=== PATIENT | female | born 1960 | race Caucasian/White ===

== ENCOUNTER 2023-09-02 05:31 | Day surgery (SDC) | payer BC ==
[2023-09-02] VITALS (19 sets, daily range): BP systolic 107–150; BP diastolic 68–89; PULSE 70–98; RESP 11–17; TEMP 97.4; O2SAT 96–100
[~2023-09-02] VITALS: Ht 167.6 cm; Wt 84.3 kg
[~2023-09-02 05:31] MED LIST: ALPR0.5T8 PO; INDOCYANINE GREEN 25 MG/10 ML VIAL IV ONE; NEBI5TAB10 PO; SEMA2PEN SQ; cefazolin 2gm/D5W 100mL 100 ML IV ONE; famotidine 20mg tablet PO ONE; ringers solution, lacted 1,000 ML IV SCH
[2023-09-02] MEDS ORDERED: LIDOcaine 1% 30ml preserv. free vial ONE ×2 (06:44→06:45)
[2023-09-02] MEDS ORDERED: BUPIVAcaine/PF 2.5mg/ml (0.25%) 10ml vial ONE ×2 (06:44→06:45)
--- NOTE | 2023-09-02 07:06 | NUR ---
LARRY LIRA HAS LOST APPROXIMATELY 7 POUNDS DUE TO NAUSEA FROM HER GALL BLADDER ISSUES Addendum: 09/02/23 at 0707 by Shannon Reis RN Amended: Links added.
[2023-09-02] MEDS ORDERED: fentaNYL/PF 50MCG/1 ML 2ML syringe ONE (07:20)
[2023-09-02] MEDS ORDERED: LIDOcaine 2% (20mg/ml) 5ml vial ONE (07:21)
[2023-09-02] MEDS ORDERED: rocuronium 10mg/ml inj IV ONE ×2 (07:21→09:06)
[2023-09-02] MEDS ORDERED: propofol inj 20 ML IV ONE (07:21)
[2023-09-02 07:29] LABS: ISTAT CREATININE 0.8 mg/dL (0.6-1.1); ISTAT HGB 13.3 g/dl (12.0-16.0); ISTAT IONIZED CALCIUM 1.2 mmol/L (1.03-1.32); ISTAT K 3.9 mmol/L (3.5-5.1); POC BUN/CREATININE RATIO 16.3 (6.6-38.0)
[2023-09-02] MEDS ORDERED: sevoflurane 250ml liquid IH ONE (07:32)
[2023-09-02] MEDS ORDERED: proCHLORperazine 10 MG/2 ml inj IV PRN (07:50)
[2023-09-02] MEDS ORDERED: morphine 2 MG/ML inj. syringe IV PRN (07:50)
[2023-09-02] MEDS ORDERED: meperidine/PF 25mg/ml syringe IV PRN ×3 (07:50)
[2023-09-02] MEDS ORDERED: morphine 4 MG/ML inj SYRINge IV PRN (07:50)
[2023-09-02] MEDS ORDERED: ringers solution, lacted 1,000 ML IV SCH (07:50)
[2023-09-02] MEDS ORDERED: ondansetron/PF 4mg/2ml inj IV PRN (07:50)
[2023-09-02 08:08] LABS: BASOPHILS % (AUTO) 0.3 % (0-1); EOSINOPHILS # (AUTO) 0.5 X10'3 (0-0.9); EOSINOPHILS % (AUTO) 5.7 % (0-6); LYMPHOCYTES % (AUTO) 24.9 % (21-51); MEAN CORPUSCULAR HEMOGLOBIN 30.7 PG (27.0-31.0); MEAN CORPUSCULAR HGB CONC 33.8 g/dL (33.0-36.5); MEAN CORPUSCULAR VOLUME 90.7 FL (78-98); MEAN PLATELET VOLUME 8.4 FL (7.4-10.4); MONOCYTES # (AUTO) 0.7 X10'3 (0-0.9); MONOCYTES % (AUTO) 8.3 % (2-12); NEUTROPHILS # (AUTO) 4.9 X10'3 (1.8-7.7); NEUTROPHILS % (AUTO) 60.8 % (42-75); PRE OP HEMATOCRIT 40.3 % (35.0-45.0); PRE OP HEMOGLOBIN 13.6 g/dL (12.0-16.0); PRE OP PLATELET COUNT 237 X10'3 (140-440); PRE OP WHITE BLOOD COUNT 8.1 10'3 (4.8-10.8); RED BLOOD COUNT 4.44 X10'6 (4.20-5.60)
[2023-09-02 08:22] LABS: ALBUMIN 3.7 G/DL (3.4-5.0); ALBUMIN/GLOBULIN RATIO 1.1 (1.1-1.5); ALKALINE PHOSPHATASE 102 IU/L (46-116); BLOOD UREA NITROGEN 13 MG/DL (7-18); BUN/CREATININE RATIO 16.3 (10.0-20.0); CALCIUM 9.3 MG/DL (8.5-10.1); CHLORIDE 104 MMOL/L (99-107); PRE OP ALT 14 U/L (30-65); PRE OP ANION GAP 8 (8-16); PRE OP AST 18 U/L (10-37); PRE OP BILIRUB, TOTAL 0.5 MG/DL (0.0-1.0); PRE OP GLUCOSE 116 MG/DL (70-104); PRE OP POTASSIUM 3.8 MMOL/L (3.4-5.1); PRE OP SODIUM 140 MMOL/L (135-145); TOTAL CARBON DIOXIDE 28.4 MMOL/L (24-32); eCRCL 69 ML/MIN; eGFR 73 ML/MIN
[2023-09-02] MEDS ORDERED: dexamethasone sod phosphate 4mg/ml inj. ONE (09:06)
[2023-09-02] MEDS ORDERED: ondansetron/PF 4mg/2ml inj ONE (09:06)
[2023-09-02] MEDS ORDERED: glycopyrrolate 0.2mg/ml inj ONE (09:38)
[2023-09-02] MEDS ORDERED: phenylephrine 10mg/ml inj. -priapism dosing ONE (09:38)
[2023-09-02] MEDS ORDERED: neostigmine methylsulfate 1 MG/ML 10ml vial ONE (09:38)
[2023-09-02] MEDS ORDERED: meperidine/PF 25mg/ml syringe ONE (09:44)
[2023-09-02] MEDS ORDERED: sugammadex 200mg/2ml injection IV ONE (10:07)
--- NOTE | 2023-09-02 10:18 | NUR ---
Received from OR via [facility], accompanied by Anesthesiologist DR TOLBERT and report given by Anesthesiologist. PT IS GROGGY BUT RESPONDS TO VERBAL STIMULI AND FOLLOWS COMMANDS. PT PLACED ON BEDSIDE MONITOR, VSS. PT IS IN SR WITH RATE IN 70'S. PT IS RECEIVING 8L O2 TO MASK AND TOLERATING WELL WITH O2 SAT > 96%, WILL TITRATE DOWN PT TOLERATES. PT HAS 20G PIV TO LEFT WRIST WITH LR INFUSING ORDERED. PT HAS 6 LAP SITES TO ABD WITH DERMABOND IN PLACE, ALL ARE CDI. PT DENIES PAIN AT THIS TIME. ANESTHESIA ORDERED BLOOD SUGAR CHECK, BG IS 185, ORDER RECEIVED TO ADMINISTER 4 UNITS REGULAR INSULIN IV AND RE-CHECK BG IN 30 MINS. WILL CONTINUE TO ASSESS.
[2023-09-02] MEDS ORDERED: insulin regular, human 10 units/0.1 ml syringe IV ONE (10:20)
[2023-09-02] MEDS ORDERED: oxyCODONE/APAP 5-325mg tablet PO PRN (10:25)
--- NOTE | 2023-09-02 10:32 | NUR ---
CALL PLACED TO PHARMACY AND SPOKE TO PHARMACIST D/T ALERT WHEN PLACING THE INSULIN ORDER IN [facility] D/T LATEX ALLERGY. PHARMACIST STATED IT WAS OK TO GIVE. WILL CONTINUE ONGOING CARE AND ASSESSMENT
--- NOTE | 2023-09-02 13:27 | NUR ---
ALL DISCHARGE CRITERIA HAS BEEN MET. VSS, PAIN AT A TOLERABLE LEVEL AND ABLE TO SAFELY AMBULATE AND TRANSFER SELF. IV TAKEN OUT WITHOUT ANY COMPLICATIONS. ALL DISCHARGE INSTRUCTIONS COVERED WITH PATIENT AND ALL QUESTIONS ANSWERED. PT NEEDING NOTE FOR WORK, DR SEE'S OFFICE NOTIFIED AND STATED THEY WILL DRAFT A NOTE FOR PT TO COOK [employer]. PATIENT TAKEN OUT VIA WHEELCHAIR TO PERSONAL VEHICLE WHERE BETTY DROVE PATIENT HOME.
== END 2023-09-02 13:12 | disposition home or self-care (01) ==
LOC: PAS 05:31
PROVIDERS: ATTEND Surgery
DX: K80.10 Calculus of gallbladder with chronic cholecystitis without obstruction (principal); K43.0 Incisional hernia with obstruction, without gangrene; K66.0 Peritoneal adhesions (postprocedural) (postinfection); I10 Essential (primary) hypertension; E11.9 Type 2 diabetes mellitus without complications; F41.9 Anxiety disorder, unspecified; Z88.2 Allergy status to sulfonamides; Z88.5 Allergy status to narcotic agent; Z91.013 Allergy to seafood; Z91.040 Latex allergy status; Z79.899 Other long term (current) drug therapy; Z87.891 Personal history of nicotine dependence; Z80.1 Family history of malignant neoplasm of trachea, bronchus and lung; Z83.3 Family history of diabetes mellitus; Z82.49 Family history of ischemic heart disease and other diseases of the circulatory system
CPT/HCPCS: 36415; 47563; 49594; 80053; 82948; 85025; 93005; J0690; J1100; J1815; J2175; J2370; J2405; J2704; J2710; J3010; J3490; J7030; J7120; S2900; Z7506; Z7508; Z7512; 80047; A4215; A4618; A7000